=== PATIENT | male | born 1990 | race Caucasian/White ===

== ENCOUNTER 2021-01-25 13:12 | Emergency (ER) | payer OTHER ==
[2021-01-25 13:24] VITALS: BP 120/80; PULSE 73; TEMP 98.5; BMI 22.9
[2021-01-25] MEDS ORDERED: IBUPROFEN 400 MG TABLET (FP) PO ONE ×2 (13:49→13:50)
== END 2021-01-25 15:04 | disposition home or self-care (01) ==
LOC: JERFT 13:12
DX: M25.562 Pain in left knee (principal)
CPT/HCPCS: 73562-TC-LT-FY; 99284-25